=== PATIENT | female | born 1945 | race Hispanic/Latino ===

== ENCOUNTER 2024-06-10 18:11 | Observation (INO) | payer OTHER, MEDICARE ==
[~2024-06-10] VITALS: Ht 170.2 cm; Wt 92.1 kg
[2024-06-10 18:52] LABS: SARS-CoV-2, RNA, NAAT NEGATIVE SARS CoV-2 (NEGATIVE)
[2024-06-10 18:54] LABS: CREATININE 1.3 mg/dL (0.5-1.0); POTASSIUM 4.4 mmol/L (3.5-5.1)
[2024-06-10 18:56] LABS: BASOPHILS # (AUTO) 0.04 K/uL (0.00-0.20); BASOPHILS % (AUTO) 0.4 % (0.0-5.0); EOSINOPHILS # (AUTO) 1.55 K/uL (0.00-0.70); EOSINOPHILS % (AUTO) 14.5 % (0.0-8.0); HEMATOCRIT 36.8 % (36-48); IMMATURE GRANULOCYTE ABSOLUTE 0.07 K/uL (0-1); INFLUENZA TYPE B Negative For Type B (NEGATIVE); LYMPHOCYTES # (AUTO) 2.1 K/uL (1.0-4.8); LYMPHOCYTES % (AUTO) 19.3 % (21.0-51.0); MEAN CORPUSCULAR HEMOGLOBIN 29.3 pg (27.0-33.0); MEAN CORPUSCULAR HGB CONC 32.1 g/dL (32.0-36.0); MEAN CORPUSCULAR VOLUME 91.3 fL (79-99); MONOCYTES # (AUTO) 0.5 K/uL (0.1-1.0); NEUTROPHILS # (AUTO) 6.4 K/uL (1.8-7.7); NEUTROPHILS % (AUTO) 60.1 % (40.0-77.0); PLATELET COUNT (AUTO) 255 K/uL (130-400); RED BLOOD CELL COUNT(AUTO) 4.03 MIL/uL (4.00-5.50); RED CELL DISTRIBUTION WIDTH 14.1 % (11.0-15.5); WHITE BLOOD COUNT (AUTO) 10.7 K/uL (4.8-10.8)
[2024-06-10 19:03] LABS: INFLUENZA TYPE A Positive For Type A (NEGATIVE)
[2024-06-10] MEDS: 0.9%NACL 1000ML 1,000 ML IV ONE (20:16)
[2024-06-10] MEDS: Solu-medROL 125MG VIAL IVP ONE (20:16)
[2024-06-10 20:43] VITALS: PULSE 73; RESP 20
[2024-06-10] MEDS: IpraTROPium/alBUTERol SULFATE 3 ML SOLUTION IH ONE (20:43)
[2024-06-10] MEDS ORDERED: ondanSETRON 4MG INJ IVP PRN (21:30)
[2024-06-10] MEDS ORDERED: HYDROcodone/APAP 5/325 1 TAB TABLET PO PRN (21:30)
[2024-06-10] MEDS ORDERED: LAbetaLOL 20MG SYG IV PRN (21:30)
[2024-06-10] MEDS: OSELTAMIVIR PHOSPHATE 75 MG CAP PO SCH (21:30)
[2024-06-10] MEDS ORDERED: acetaMINOPHEN 650 MG SUPPOSITORY RC PRN (21:30)
[2024-06-10] MEDS ORDERED: acetaMINOPHEN 325 MG TAB PO PRN (21:30)
[2024-06-10] MEDS ORDERED: hydrALAZine 20MG/ML VIAL IV PRN (21:30)
[2024-06-10 23:00] VITALS: BP 124/50; PULSE 83; RESP 20; TEMP 97.5
[2024-06-10 23:10] VITALS: O2SAT 97
[2024-06-11] VITALS (10 sets, daily range): BP systolic 130–170; BP diastolic 62–94; PULSE 84–98; RESP 18–20; TEMP 97.8–98.5; O2SAT 94–97
[2024-06-11] MEDS: IpraTROPium/alBUTERol SULFATE 3 ML SOLUTION IH SCH (00:48)
[2024-06-11] MEDS: acetylCYSTeine 20% 200MG/ML 4ML VIAL IH SCH (00:49)
[2024-06-11 05:29] LABS: BASOPHILS # (AUTO) 0.01 K/uL (0.00-0.20); BASOPHILS % (AUTO) 0.1 % (0.0-5.0); EOSINOPHILS # (AUTO) 0.02 K/uL (0.00-0.70); EOSINOPHILS % (AUTO) 0.2 % (0.0-8.0); HEMATOCRIT 36.1 % (36-48); IMMATURE GRANULOCYTE ABSOLUTE 0.06 K/uL (0-1); LYMPHOCYTES # (AUTO) 0.9 K/uL (1.0-4.8); LYMPHOCYTES % (AUTO) 10.3 % (21.0-51.0); MEAN CORPUSCULAR HEMOGLOBIN 29.6 pg (27.0-33.0); MEAN CORPUSCULAR HGB CONC 32.7 g/dL (32.0-36.0); MEAN CORPUSCULAR VOLUME 90.7 fL (79-99); MONOCYTES % (AUTO) 0.5 % (3.0-13.0); NEUTROPHILS # (AUTO) 7.3 K/uL (1.8-7.7); NEUTROPHILS % (AUTO) 88.2 % (40.0-77.0); PLATELET COUNT (AUTO) 270 K/uL (130-400); RED BLOOD CELL COUNT(AUTO) 3.98 MIL/uL (4.00-5.50); RED CELL DISTRIBUTION WIDTH 13.9 % (11.0-15.5); WHITE BLOOD COUNT (AUTO) 8.3 K/uL (4.8-10.8)
[2024-06-11 05:47] LABS: CREATININE 1.3 mg/dL (0.5-1.0); MAGNESIUM 1.9 mg/dL (1.80-2.40); POTASSIUM 4.1 mmol/L (3.5-5.1)
[2024-06-11] MEDS: INSULIN humuLIN R 100 UNIT/ML 3ML SQ SCH (06:56)
[2024-06-11] MEDS: ASCORBIC ACID 500 MG TAB PO SCH (08:32)
[2024-06-11] MEDS: PANTOPrazole 40 MG TAB DR PO SCH (08:32)
[2024-06-11] MEDS: ENOXAPARIN SODIUM 40 MG/0.4 ML SYRINGE SQ SCH (08:34)
[2024-06-11] MEDS: polyETHYLene GLYCol 3350 17 GM POWD.PACK PO SCH (08:34)
[2024-06-11] MEDS ORDERED: BENZ-39 PO (11:14)
[2024-06-11] MEDS ORDERED: LEVO-70 PO (11:14)
[2024-06-11] MEDS ORDERED: FLUC150T48 PO (11:14)
[2024-06-11 13:03] LABS: HEMOGLOBIN A1C 6.5 % (4.0-6.0)
[2024-06-11] MEDS ORDERED: OSEL75 PO (13:56)
[2024-06-11 15:14] LABS: APPEARANCE,URINE CLEAR (CLEAR); BILIRUBIN,URINE NEGATIVE (NEGATIVE); COLOR,URINE LIGHT-YELLOW (YELLOW); GLUCOSE, URINE (UA) >=1000 mg/dL (NEGATIVE); KETONES,URINE NEGATIVE (NEGATIVE); LEUKOCYTE ESTERASE ,URINE NEGATIVE Leu/uL (NEGATIVE); NITRATE,URINE NEGATIVE (NEGATIVE); OCCULT BLOOD,URINE NEGATIVE (NEGATIVE); PROTEIN,URINE NEGATIVE (NEGATIVE); UROBILINOGEN,URINE 0.2 mg/dL (0.2-1.0)
[2024-06-11 15:21] LABS: ADD UA MICROSCOPIC YES
[2024-06-11 15:22] LABS: MUCUS,URINE RARE LPF (None Seen); RBC,URINE 0-1 /HPF (0-1); SQUAMOUS EPITHELIAL CELL,UR FEW /HPF (0-2); WBC,URINE 0-1 /HPF (0-1)
== END 2024-06-11 18:10 | disposition home or self-care (01) ==
LOC: EDH 18:11 → EDBD 18:11 → EDHIP 21:20 → 3BH 23:01
PROVIDERS: ADMIT Internal Medicine Critical Care Medicine; ATTEND Internal Medicine Critical Care Medicine
DX: J20.9 Acute bronchitis, unspecified (principal); Z20.822 Contact with and (suspected) exposure to COVID-19; J10.1 Influenza due to other identified influenza virus with other respiratory manifestations; J96.01 Acute respiratory failure with hypoxia; N17.9 Acute kidney failure, unspecified; J45.909 Unspecified asthma, uncomplicated; E78.5 Hyperlipidemia, unspecified; E66.01 Morbid (severe) obesity due to excess calories; I25.10 Atherosclerotic heart disease of native coronary artery without angina pectoris; J98.4 Other disorders of lung; I10 Essential (primary) hypertension; Z68.37 Body mass index [BMI] 37.0-37.9, adult; Z79.899 Other long term (current) drug therapy; Z88.6 Allergy status to analgesic agent; Z88.0 Allergy status to penicillin
CPT/HCPCS: 96374; 96361; 99285; 80048 ×2; 85025 ×2; 87804 ×2; 36415 ×2; 87635; 71045; 76770; 93005; 94640; 84145; 96372; 83036; 83735; 84100; 87086; 82948 ×5; 81001; G0378 ×21; J7030; J2919; J1815 ×3; J1650; 94664

== ENCOUNTER 2025-01-21 10:35 | Emergency (ER) | payer OTHER, MEDICARE ==
[~2025-01-21] VITALS: Ht 157.5 cm; Wt 99.8 kg
[~2025-01-21 10:35] MED LIST: BENZ-39 PO; FLUC150T48 PO; LEVO-70 PO; OSEL75 PO
[2025-01-21 11:22] LABS: BASOPHILS # (AUTO) 0.02 K/uL (0.00-0.20); BASOPHILS % (AUTO) 0.3 % (0.0-5.0); EOSINOPHILS # (AUTO) 0.23 K/uL (0.00-0.70); EOSINOPHILS % (AUTO) 3.7 % (0.0-8.0); HEMATOCRIT 37.2 % (36-48); IMMATURE GRANULOCYTE ABSOLUTE 0.03 K/uL (0-1); LYMPHOCYTES # (AUTO) 2.1 K/uL (1.0-4.8); LYMPHOCYTES % (AUTO) 33.2 % (21.0-51.0); MEAN CORPUSCULAR HEMOGLOBIN 29.7 pg (27.0-33.0); MEAN CORPUSCULAR VOLUME 92.8 fL (79-99); MONOCYTES # (AUTO) 0.6 K/uL (0.1-1.0); MONOCYTES % (AUTO) 9.9 % (3.0-13.0); NEUTROPHILS # (AUTO) 3.3 K/uL (1.8-7.7); NEUTROPHILS % (AUTO) 52.4 % (40.0-77.0); PLATELET COUNT (AUTO) 231 K/uL (130-400); RED BLOOD CELL COUNT(AUTO) 4.01 MIL/uL (4.00-5.50); RED CELL DISTRIBUTION WIDTH 14.2 % (11.0-15.5); WHITE BLOOD COUNT (AUTO) 6.3 K/uL (4.8-10.8)
[2025-01-21 11:31] LABS: CREATININE 1.2 mg/dL (0.5-1.0); POTASSIUM 3.4 mmol/L (3.5-5.1)
[2025-01-21 12:31] LABS: APPEARANCE,URINE CLEAR (CLEAR); BILIRUBIN,URINE NEGATIVE (NEGATIVE); COLOR,URINE YELLOW (YELLOW); GLUCOSE, URINE (UA) NEGATIVE (NEGATIVE); KETONES,URINE NEGATIVE (NEGATIVE); LEUKOCYTE ESTERASE ,URINE 250 Leu/uL (NEGATIVE); NITRATE,URINE NEGATIVE (NEGATIVE); OCCULT BLOOD,URINE NEGATIVE (NEGATIVE); PH,URINE 5.5 (5.0-8.0); PROTEIN,URINE NEGATIVE (NEGATIVE); UROBILINOGEN,URINE 0.2 mg/dL (0.2-1.0)
[2025-01-21 12:35] LABS: ADD UA MICROSCOPIC YES
[2025-01-21 12:39] LABS: MUCUS,URINE RARE LPF (None Seen); NON-SQUAMOUS EPITHELIAL CELL <1 /HPF (0-2); SQUAMOUS EPITHELIAL CELL,UR FEW /HPF (0-2)
[2025-01-21] MEDS: ORPHENADRINE 60MG/2ML IM ONE (13:43)
[2025-01-21] MEDS: 0.9% NACL 500ML IV.SOLN 500 ML IV ONE (13:43)
[2025-01-21] MEDS: ketOROlac 15MG/ML VIAL (15MG/ML) IV ONE (13:48)
[2025-01-21] MEDS ORDERED: CYCL10TA16 PO (13:53)
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
[2025-01-21 14:06] VITALS: BP 151/73; PULSE 68; RESP 16; TEMP 97.9; O2SAT 95
== END 2025-01-21 14:13 | disposition home or self-care (01) ==
LOC: EDH 10:35
DX: S39.012A Strain of muscle, fascia and tendon of lower back, initial encounter (principal); E03.9 Hypothyroidism, unspecified; E78.00 Pure hypercholesterolemia, unspecified; I10 Essential (primary) hypertension; I25.10 Atherosclerotic heart disease of native coronary artery without angina pectoris; J45.909 Unspecified asthma, uncomplicated; Z88.0 Allergy status to penicillin; Z88.6 Allergy status to analgesic agent; X58.XXXA Exposure to other specified factors, initial encounter; Y93.89 Activity, other specified; Y92.89 Other specified places as the place of occurrence of the external cause; Y99.8 Other external cause status
CPT/HCPCS: 99284; 96374; 80048; 85025; 87086; 81001; 36415; 96372; J1885; J7040; J2360